=== PATIENT | female | born 1955 | race Caucasian/White ===

== ENCOUNTER 2019-04-25 08:27 | Inpatient (IN) | payer OTHER ==
[~2019-04-25] VITALS: Ht 170.2 cm; Wt 73.6 kg
[~2019-04-25 08:27] MED LIST: ALDACTONE25 MG PO; ASPIRIN EC325 M1 PO; ASPIRIN EC81 M1 PO; BENICAR HCT 201 EACH PO; BENICAR20 MG PO; DIGOXIN250 MCG PO; MEXILETINE 150150 MG PO; NORVASC10 MG PO; TOPROL XL200 MG PO
[2019-04-25 08:28] VITALS: BP 115/35
[2019-04-25 09:55] LABS: ABSOLUTE NEUTROPHILS 8.1 thou/uL (1.4-8.2); BASOPHILS 0.8 % (0.0-2.0); EOSINOPHILS 0.2 % (0.0-3.0); HEMATOCRIT 34.8 % (37.0-47.0); HEMOGLOBIN 11.8 gm/dL (12.0-15.0); LYMPHOCYTES 13.1 % (24.0-44.0); MCH 31.6 pg (26.0-34.0); MCHC 33.9 g/dL (28.0-37.0); MCV 93.3 fL (80.0-100.0); MONOCYTES 6.8 % (1.0-8.0); PLATELET COUNT 194 thou/uL (150-400); POLYS 79.1 % (36.0-66.0); RBC 3.73 mil/uL (4.20-5.00); RDW 12.1 % (10.5-14.5); WBC 10.2 thou/uL (4.0-11.0)
[2019-04-25 10:48] LABS: CALCIUM 8.6 mg/dL (8.5-10.1); CREATININE 2.2 mg/dL (0.6-1.0); POTASSIUM 4.5 mmol/L (3.5-5.1)
[2019-04-25 10:56] LABS: URINE BILIRUBIN NEGATIVE (Negative); URINE BLOOD NEGATIVE (Negative); URINE CLARITY CLEAR; URINE COLOR YELLOW; URINE GLUCOSE-RANDOM* 3+ (Negative); URINE KETONES NEGATIVE (Negative); URINE LEUKOCYTES-REFLEX TRACE (Negative); URINE NITRITE-REFLEX NEGATIVE (Negative); URINE PROTEIN (DIPSTICK) NEGATIVE (Negative); URINE UROBILINOGEN 0.2 E.U./dl (0.2-1.0)
[2019-04-25 11:05] LABS: MAGNESIUM 2.2 mg/dL (1.8-2.4)
[2019-04-25 11:12] LABS: DIGOXIN 2.7 ng/mL (0.9-2.0)
--- NOTE | 2019-04-25 12:15 | NUR ---
1ST ATTEMPT TO CALL REPORT TO THE FLOOR, INSTRUCTED TO GIVE THEM 10 MIN.
[2019-04-25 12:53] VITALS: BP 105/63
[2019-04-25 12:54] VITALS: BP 118/52
--- NOTE | 2019-04-25 14:20 | NUR ---
PATIENT ADMITTED TO ROOM AT THIS TIME. SHE IS ALERT ORIENTED X4. DOES NOT SEEM TO BE IN PAIN OR DISTRESS. NOTED TO HAVE BRADYCARDIA. PLEASANT WITH CARE.S WILL CONT WITH PLAN OF CARE.
[2019-04-25] MEDS ORDERED: EDARBI40 MG PO (14:21)
[2019-04-25] MEDS ORDERED: ATORVASTATIN CA10 MG PO (14:22)
[2019-04-25] MEDS ORDERED: JARDIANCE10 MG PO (14:22)
[2019-04-25] MEDS ORDERED: TRADJENTA5 MG (14:23)
[2019-04-25] MEDS ORDERED: LIPITOR 40 MG T40 M1 PO (14:23)
[2019-04-25] MEDS ORDERED: METFORMIN HCL500 MG PO (14:24)
--- NOTE | 2019-04-25 14:54 | NUR ---
PT ORIENTED TO ROOM 213. BED LOW AND LOCKED, SIDE RAILS UPX3, CALL LIGHT IN REACH. WILL CONTINUE TO ASSESS.
--- NOTE | 2019-04-25 14:59 | NUR ---
ASSESSMENT CHARTED. PT ALERT AND ORIENTED. VSS. DENIED HAVING PAIN OR DISCOMFORT. WOUNDCARE PROVIDED ORDERED. ORDERS GIVEN TO DISCHARGE PT TO HOME. DISCHARGE INSTRUCTIONS GIVEN TO PT. PT VERBERLISED UNDERSTANDING. PT LEFT THE FACILITY ACCOMPANIED BY THE AND DAUGHTER.
[2019-04-25 15:00] VITALS: BP 119/54
[2019-04-25 20:30] VITALS: BP 119/52
[2019-04-25 23:10] LABS: GLYCOHEMOGLOBIN (HGB A1C) 7.6 % (4.8-5.6)
[2019-04-26] VITALS: BP 104/46
--- NOTE | 2019-04-26 04:49 | NUR ---
ASSUMED PT CARE AROUND 1900. PT WAS RESTING IN BED WITH FAMILY AT BEDSIDE. PT IS C/O OF ZERO PAIN. MEDICATIONS ARE BEING HELD PER PHYSICIAN ORDERS. WILL CONTINUE TO MONITOR PT PER PLAN OF CARE WITH MINIMAL INTERRUPTIONS DURING NIGHT.
[2019-04-26 04:51] VITALS: BP 111/44
[2019-04-26 06:25] LABS: CALCIUM 8.6 mg/dL (8.5-10.1); CREATININE 1.5 mg/dL (0.6-1.0); POTASSIUM 4.3 mmol/L (3.5-5.1)
[2019-04-26 07:30] VITALS: BP 121/60
--- NOTE | 2019-04-26 10:52 | 2DMMODE ---
[facility] [place] [address] 2 D/M-MODE ECHOCARDIOGRAM Name: JUDD QUAN Enedina Room #: 213-P ADM IN M.R.#: [id number] Admission: 04/25/19 Attend Phys: Zuly Gamboa MD Discharge: Date of : 59 Report #: [id number] THIS REPORT FOR: cc: Jose Torrez Louis D. DO Mancuso, Gerald M. MD [facility] ~ APPROVED REPORT Study performed: 04/26/2019 09:48:28 EXAM: Comprehensive 2D, Doppler, and color-flow Echocardiogram Patient Location: Echo lab Room #: 213 Status: routine BSA: 1.93 HR: 63 bpm BP: 121/60 mmHg Rhythm: Pacemaker Other Information Study Quality: Good Indications ICD: Diabetes Bradycardia Syncope Cardiomyopathy Hypertension/HDD 2D Dimensions RVDd: 36.59 mm IVSd: 9.78 (7-11mm) LVOT Diam: 23.10 (18-24mm) LVDd: 52.61 mm PWd: 9.44 (7-11mm) Ascending Ao: 28.10 (22-36mm) LVDs: 40.41 (25-40mm) Aortic Root: 27.60 mm IVC: 30.00 mm Volumes Left Atrial Volume (Systole) Single Plane 4CH: 44.31 mL Single Plane 2CH: 43.81 mL LA ESV Index: 26.00 mL/m2 Aortic Valve [facility] [address] [place] [address] 2 D/M-MODE ECHOCARDIOGRAM Name: AVELINAJUDD L Room #: [facility] IN ..#: [id number] Admission: 04/25/19 Attend Phys: Kendra Lockwood Discharge: Date of : 59 Report #: [id number] AoV Peak Richard.: 1.89 m/s AO Peak Gr.: 14.21 mmHg LVOT Max P.12 mmHg LVOT Max V: 1.13 m/s LESLIE Vmax: 2.51 cm2 Mitral Valve E/A Ratio: 1.2 MV Decel. Time: 230.92 ms MV E Max Richard.: 0.97 m/s MV A Richard.: 0.82 m/s MV PHT: 66.97 ms IVRT: 138.41 ms Pulmonary Valve PV Peak Richard.: 1.35 m/s PV Peak Gr.: 7.34 mmHg Pulmonary Vein P Vein S: 0.67 m/s P Vein A: 0.26 m/s P Vein D: 0.62 m/s P Vein A Dur.: 110.7 msec P Vein S/D Ratio: 1.08 Tricuspid Valve TR Peak Richard.: 2.51 m/s TR Peak Gr.: 25.29 mmHg PA Pressure: 35.00 mmHg Left Ventricle The left ventricle is normal size. Paradoxical septal motion consistent with conduction abnormality. There is normal left ventricular wall thickness. Left ventricular systolic function is borderline. LVEF is 50%. Grade II - pseudonormal filling dynamics. Right Ventricle The right ventricle is normal size. The right ventricular systolic function is normal. Device lead is present in the right ventricle. Atria The left atrium size is normal. The right atrium size is normal. Device lead is present in the right atrium. Aortic Valve The aortic valve is normal in structure. No aortic regurgitation is present. There is no aortic valvular stenosis. Mitral Valve [facility] [address] [place] [address] 2 D/M-MODE ECHOCARDIOGRAM Name: AVELINAJUDD L Room #: 213-P [facility] IN .R.#: [id number] Admission: 04/25/19 Attend Phys: Kendra Lockwood Discharge: Date of : 59 Report #: [id number] The mitral valve is normal in structure. There is no mitral valve regurgitation noted. No evidence of mitral valve stenosis. Tricuspid Valve The tricuspid valve is normal in structure. There is trace to mild tricuspid regurgitation. Estimated PAP 35 mmHg. There is mild pulmonary hypertension. Pulmonic Valve The pulmonary valve is normal in structure. There is no pulmonic valvular regurgitation. Great Vessels The aortic root is normal in size. IVC is dilated and collapses >50% with inspiration. Pericardium There is no pericardial effusion. <Conclusion> The left ventricle is normal size. Left ventricular systolic function is borderline. LVEF is 50%. Grade II - pseudonormal filling dynamics. The right ventricle is normal size. Device lead is present in the right ventricle. The right atrium size is normal. Device lead is present in the right atrium. The aortic valve is normal in structure. There is no mitral valve regurgitation noted. There is trace to mild tricuspid regurgitation. Estimated PAP 35 mmHg. There is mild pulmonary hypertension. The aortic root is normal in size. There is no pericardial effusion. <ELECTRONICALLY SIGNED> By: Asif Olivares MD, FACC 04/26/19 [id number] Asif Olivares MD, FACC /INF
[2019-04-26 11:30] VITALS: BP 133/57
--- NOTE | 2019-04-26 12:34 | EKG ---
[facility] [place] [place] [address] ELECTROCARDIOGRAM REPORT Name: JUDD QUAN Room #: 213-P ADM IN M.R.#: [id number] Admission: 04/25/19 Attend Phys: Zuly Gamboa MD Discharge: Date of : 59 Report #: [id number] THIS REPORT FOR: cc: Jose Torrez Louis D. DO Lundgren, Craig H. 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 : 1955 Requested By: Katarina Middleton Order Number: [id number] MD: Michael Blanton Measurements Intervals [place] Rate: 48 P: 65 WI: 171 QRS: -32 QRSD: 174 T: 136 QT: 500 QTc: 447 Interpretive Statements Sinus bradycardia Left bundle branch block Compared to ECG 03/25/2011 07:21:30 Atrial-paced complex(es) or rhythm no longer present Electronically Signed On 04-25-2019 9:22:30 ART DEALER by Michael Blanton [email or web address] <ELECTRONICALLY SIGNED> By: Michael Blanton MD, [facility] 04/25/19921 3 Michael Blanton MD, [facility] /EPI
--- NOTE | 2019-04-26 12:43 | EKG ---
[facility] [place] [address] ELECTROCARDIOGRAM REPORT Name: JUDD QUAN Room #: 213-P ADM IN M.R.#: [id number] Admission: 04/25/19 Attend Phys: Zuly Gamboa MD Discharge: Date of : 59 Report #: [id number] THIS REPORT FOR: cc: Jose Torrez Louis D. DO Lundgren, Craig H. MD [facility] ~ THIS REPORT FOR: //name// [facility] Test Date: 2019-04-25 Test Time: 13:36:50 Pat Name: JUDD QUAN Department: Room: 213 Gender: F Electronics Engineering Manager: Walter KAUR : 1955 Requested By: Diane Mercer Order Number: [id number] MD: Michael Blanton Measurements Intervals [place] Rate: 50 P: 31 GA: 166 QRS: -36 QRSD: 161 T: 150 QT: 472 QTc: 431 Interpretive Statements Sinus rhythm Left bundle branch block Compared to ECG 04/25/2019 08:44:18 No significant change was found Electronically Signed On 04-25-2019 17:32:24 LIVE GAMES DEALER by Michael Blanton [email or web address] <ELECTRONICALLY SIGNED> By: Michael Blanton MD, [facility] 04/25/19 [id number] Michael Blanton MD, [facility] /EPI
[2019-04-26 16:30] VITALS: BP 119/56
--- NOTE | 2019-04-26 18:22 | NUR ---
ASSUMED CARE TA SHIFT CHANGE, ALERT AND ORIENTED X4. SB/1AVB/BBB ON THE MONITOR AND OTHER VSS. PATIENT CANCERNS AND QUESIONS ANSWERED, AND FAMILY EDUCATED POC. AND WILL CONTINUE WITH POC.
[2019-04-26 21:22] VITALS: BP 129/58
[2019-04-27 03:55] VITALS: BP 126/56
--- NOTE | 2019-04-27 08:43 | NUR ---
PATIENT WITH STANDBY ASSIST TO THE BATHROOM.DENIES PAIN. MONITOR SHOWS SINUS ROCHELLE.POC CONTINUED.
[2019-04-27 09:05] VITALS: BP 125/81
[2019-04-27 09:53] LABS: CALCIUM 8.8 mg/dL (8.5-10.1); CREATININE 1.1 mg/dL (0.6-1.0)
[2019-04-27 11:00] VITALS: BP 117/46
[2019-04-27 14:08] VITALS: BP 125/81
--- NOTE | 2019-04-27 16:27 | NUR ---
ASSUMED CARE AT SHIFT CHANGE, ALERT AND ORIENTED X4. VSS AMD SR WITH BBB. DISCHARGE AND MEDICATIONS GIVEN TO PATIENT AND FAMILY. PATIENT DISCHARGED HOME.
== END 2019-04-27 16:17 | disposition home or self-care (01) | DRG 683 ==
LOC: ER 08:27 → EROBS 11:04 → 2N 11:38 → 3W 12:47 → 2N 14:40 → ENTRNSPT 04-27 14:27 → EDTRNSPTSTS 04-27 14:29 → 2N 04-27 16:17
PROVIDERS: Emergency Medicine Emergency Medical Services; Nurse Practitioner Adult Health; ADMIT Hospitalist
DX: N17.9 Acute kidney failure, unspecified (principal); I42.0 Dilated cardiomyopathy; E86.0 Dehydration; R00.1 Bradycardia, unspecified; T46.0X5A Adverse effect of cardiac-stimulant glycosides and drugs of similar action, initial encounter; E66.9 Obesity, unspecified; I34.0 Nonrheumatic mitral (valve) insufficiency; I44.7 Left bundle-branch block, unspecified; R55 Syncope and collapse; E78.00 Pure hypercholesterolemia, unspecified; E11.22 Type 2 diabetes mellitus with diabetic chronic kidney disease; I12.9 Hypertensive chronic kidney disease with stage 1 through stage 4 chronic kidney disease, or unspecified chronic kidney disease; N18.9 Chronic kidney disease, unspecified; E78.5 Hyperlipidemia, unspecified; Y92.89 Other specified places as the place of occurrence of the external cause; Z95.810 Presence of automatic (implantable) cardiac defibrillator; Z68.25 Body mass index [BMI] 25.0-25.9, adult; Z79.84 Long term (current) use of oral hypoglycemic drugs; Z79.899 Other long term (current) drug therapy; Z88.1 Allergy status to other antibiotic agents; Z88.0 Allergy status to penicillin; Z88.2 Allergy status to sulfonamides; Z88.8 Allergy status to other drugs, medicaments and biological substances; Z80.9 Family history of malignant neoplasm, unspecified
CPT/HCPCS: 10081

== ENCOUNTER → 2019-12-11 | Outpatient (CLI) | payer OTHER ==
[~2019-12-11] MED LIST changes: +ATORVASTATIN CA10 MG PO; +EDARBI40 MG PO; +JARDIANCE10 MG PO; +LIPITOR 40 MG T40 M1 PO; +METFORMIN HCL500 MG PO; +TRADJENTA5 MG
== END ==
LOC: LAB 07:38
PROVIDERS: ATTEND Internal Medicine Cardiovascular Disease
DX: Z01.812 Encounter for preprocedural laboratory examination (principal); Z20.828 Contact with and (suspected) exposure to other viral communicable diseases

== ENCOUNTER → 2019-12-15 | Outpatient (CLI) | payer OTHER ==
[~2019-12-15] VITALS: Ht 170.2 cm; Wt 94.3 kg
--- NOTE | ~2019-12-15 | P ---
[facility] [address] [place] [address] PROCEDURE REPORT Name: JUDD QUAN Room #: [facility]#: [id number] Admission: 12/15/19 Attend Phys: Rudy Hitchcock MD Discharge: Date of : 59 Report #: [id number] THIS REPORT FOR: cc: Jose Torrez,Jose Fry,Rudy Galarza MD ~ CC: Jose Hitchcock DATE OF SERVICE: 12/15/2019 PREOPERATIVE DIAGNOSIS: Implantable cardioverter-defibrillator elective replacement indicator. POSTOPERATIVE DIAGNOSIS: Implantable cardioverter-defibrillator elective replacement indicator. HISTORY: The patient is a 64-year-old female with a history of recurrent ventricular tachycardia, ventricular fibrillation. Also with prior lead issues with a prior ICD that has been abandoned on the left side. She had a subsequent ICD implanted on the right. Her device is at the effective replacement interval. She is here for generator exchange. ANESTHESIA: The patient underwent MAC anesthesia with no anesthesia related complications. DESCRIPTION OF PROCEDURE: The patient underwent informed consent. We discussed the details of the procedure including the risks, which include but not limited to bleeding, infection, need for possible lead revisions. She understood these risks and is willing to proceed. The patient was brought to EP laboratory in a fasting and sedated state and prepped and draped in a sterile fashion. She received IV antibiotics prior to initiation of the procedure. Next, I injected lidocaine at the prior incision site. Incision was made and the chronic pocket was entered. The old device was disconnected from the leads. The new device was connected. Tug test performed. The device was placed in the pocket. Pocket was irrigated with vancomycin and the pocket was closed in 2 layers using 2-0 for the deep layer, 3-0 for the middle layer and surgical glue was placed to outer skin layer. The patient awoke neurologically and hemodynamically intact. No complications and no significant bleeding. Of note, threshold testing on the atrial and ventricular leads was performed without any incident. This is noted because she has mentioned that she has gone into ventricular tachycardia with pacing thresholds performed in the past. The explanted device was a MedDotProduct, model #Q990NWA, serial #[id number] [address] [address] PROCEDURE REPORT Name: JUDD QUAN [id number] Admission: 12/15/19 Attend Phys: Rudy Hitchcock MD Discharge: Date of : 59 Report #: [id number] implanted back on 03/24/2011. The newly implanted device was a Medtronic Primo model #RGGR3R4, serial #[id number]. The atrial lead was a Medtronic model #4076, 45 cm, serial #[id number], implanted on 03/24/2011. The RV lead was a Medtronic model #6935, 58 cm, serial #[id number], also implanted on 03/24/2011. The atrial lead demonstrated P-wave of 0.4 millivolts, pacing impedance 532 ohms, pacing threshold 0.8 volts at 0.4 milliseconds. RV lead demonstrated R-wave of 3.9 millivolts, pacing impedance of 361 ohms and pacing threshold of 1 volt at 0.4 milliseconds. The device was programmed to the VVI 30 mode as she has had prior episodes of VT with any pacing. The ICD therapies were set back to their nominal settings. CONCLUSIONS: 1. Successful ICD generator exchange. 2. Satisfactory atrial and right ventricular pacing and sensing thresholds. 3. No procedure related complications. By: [id number] Rudy Hitchcock MD /nt
[2019-12-15 07:28] VITALS: BP 123/58
--- NOTE | 2019-12-15 07:55 | EKG ---
[facility] [place] [address] [address] [place] [address] ELECTROCARDIOGRAM REPORT Name: JUDD QUAN Room #: [facility]#: [id number] Admission: 12/15/19 Attend Phys: Rudy Hitchcock MD Discharge: Date of : 59 Report #: [id number] THIS REPORT FOR: cc: Jose Torrez Louis D. DO Lundgren, Craig H. 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: ELIZABETH : 1955 Requested By: Rudy Hitchcock Order Number: [id number] MD: Michael Blanton Measurements Intervals [place] Rate: 65 P: 60 WI: 150 QRS: -34 QRSD: 166 T: 108 QT: 487 QTc: 507 Interpretive Statements Sinus rhythm Multiple ventricular premature complexes Left bundle branch block Baseline wander in lead(s) V2 Compared to ECG 04/25/2019 13:36:50 Ventricular premature complex(es) now present Electronically Signed On 12-15-2019 7:55:18 CDT by Michael Blanton [email or web address] <ELECTRONICALLY SIGNED> By: Michael Blanton MD, FACC 12/15/19 0755 0742 Michael Blanton MD, FAC /EPI
[2019-12-15 08:07] LABS: ABSOLUTE NEUTROPHILS 6.4 thou/uL (1.4-8.2); BASOPHILS 0.3 % (0.0-2.0); EOSINOPHILS 0.9 % (0.0-3.0); HEMATOCRIT 35.2 % (37.0-47.0); HEMOGLOBIN 11.6 gm/dL (12.0-15.0); LYMPHOCYTES 22.4 % (24.0-44.0); MCH 30.9 pg (26.0-34.0); MCHC 32.8 g/dL (28.0-37.0); PLATELET COUNT 249 thou/uL (150-400); POLYS 67.4 % (36.0-66.0); RBC 3.75 mil/uL (4.20-5.00); RDW 12.5 % (10.5-14.5); WBC 9.4 thou/uL (4.0-11.0)
[2019-12-15 08:12] LABS: CALCIUM 9.2 mg/dL (8.5-10.1); CREATININE 1.3 mg/dL (0.6-1.0); POTASSIUM 3.8 mmol/L (3.5-5.1)
[2019-12-15 08:17] LABS: TOTAL BILIRUBIN 0.6 mg/dL (0.2-1.0); TOTAL PROTEIN 8.2 g/dL (6.4-8.2)
[2019-12-15 08:21] LABS: APTT 26.8 Seconds (24.5-32.8); PROTIME 10.5 Seconds (9.3-11.4)
== END | disposition home or self-care (01) ==
LOC: CATH 06:26
PROVIDERS: ATTEND Internal Medicine Cardiovascular Disease
DX: Z45.02 Encounter for adjustment and management of automatic implantable cardiac defibrillator (principal); I47.2 Ventricular tachycardia; I49.01 Ventricular fibrillation; I42.0 Dilated cardiomyopathy; I10 Essential (primary) hypertension; E66.09 Other obesity due to excess calories; Z98.890 Other specified postprocedural states; Z79.899 Other long term (current) drug therapy; Z88.0 Allergy status to penicillin; Z88.2 Allergy status to sulfonamides; Z88.8 Allergy status to other drugs, medicaments and biological substances; Z79.01 Long term (current) use of anticoagulants
CPT/HCPCS: 62110; 62900; 70005

== ENCOUNTER → 2020-11-08 | Outpatient (CLI) | payer OTHER | LOC: SJCVCIMAG 10:15 | PROVIDERS: ATTEND Internal Medicine Cardiovascular Disease | DX: I08.1 Rheumatic disorders of both mitral and tricuspid valves (principal); I42.9 Cardiomyopathy, unspecified; I47.2 Ventricular tachycardia; I10 Essential (primary) hypertension; E78.5 Hyperlipidemia, unspecified; E11.9 Type 2 diabetes mellitus without complications; R07.89 Other chest pain; I44.7 Left bundle-branch block, unspecified; Z45.02 Encounter for adjustment and management of automatic implantable cardiac defibrillator; Z79.84 Long term (current) use of oral hypoglycemic drugs; Z79.899 Other long term (current) drug therapy; Z88.0 Allergy status to penicillin; Z88.2 Allergy status to sulfonamides; Z88.1 Allergy status to other antibiotic agents; Z95.810 Presence of automatic (implantable) cardiac defibrillator ==